=== PATIENT | male | born 1960 | race Caucasian/White ===

== ENCOUNTER 2017-04-10 18:38 | Emergency (ER) | payer OTHER ==
[2017-04-10 18:43] VITALS: BP 152/88
[2017-04-10] MEDS ORDERED: CYCLOBENZAPRINE 10 MG Prepack 2 PO PRN (19:08)
[2017-04-10] MEDS ORDERED: HYDROcod/ACET 5/325 Prepack 6 PO STA (19:08)
--- NOTE | 2017-04-10 19:11 | ED Physician Documentation ---
PD HPI BACK INJURY - Stated complaint Stated Complaint: BACK PX - History obtained from History obtained from: Patient, Family () - History of Present Illness Type of injury: Other (Without specific injury this 56-year-old gentleman developed back pain the area of the low lumbar spine radiating a little bit to the left but not to the buttock or legs about a week ago. It is best if he is sitting still, worse if he tries to get up, twists, or with motion. There is no associated weakness, numbness, or tingling of the extremities. No saddle anesthesia or fevers. No bowel or bladder incontinence. He tried Motrin and a topical patch without relief.) Review of Systems Constitutional: denies: Fever, Chills Cardiac: denies: Chest pain / pressure, Palpitations Respiratory: denies: Dyspnea, Cough PD PAST MEDICAL HISTORY - Past Medical History Past Medical History: Yes Neuro: Fainting GI: GERD : Benign prostate hypertrophy - Past Surgical History Past Surgical History: Yes General: Appendectomy - Present Medications Home Medications: Ambulatory Orders Medication Instructions Recorded Confirmed Cyclobenzaprine [Flexeril] 10 mg PO TID PRN #20 tablet 04/10/17 HYDROcod/ACETAM 5/325 [[place] 5/325] 1 - 2 ea PO Q6H PRN #15 tablet 04/10/17 - Allergies Allergies/Adverse Reactions: Allergies Allergy/AdvReac Type Severity Reaction Status Date / Time No Known Drug Allergies Allergy Verified 04/10/17 18:43 - Social History Does the pt smoke?: No Smoking Status: Former smoker Does the pt drink ETOH?: Yes Does the pt have substance abuse?: No - Immunizations Immunizations are current?: Yes - POLST Patient has POLST: No PD ED PE NORMAL - Vitals Vital signs reviewed: Yes - General General: Alert and oriented X 3, No acute distress - Abdomen Abdomen: Normal bowel sounds, Soft, Non tender - Back Back: No spinal TTP, Other (Some paralumbar muscle tenderness and winces with motion, The patient has equal and normal Achilles and patellar reflexes bilaterally. Normal sensation in all areas of the legs. Patient denies saddle anesthesia. Normal strength in flexion-extension at the ankles, knees, and flexion of the hips.) - Neuro Neuro: Alert and oriented X 3, Normal speech - Psych Psych: Normal mood, Normal affect Results - Vitals Vitals: Vital Signs - 24 hr 04/10/17 18:40 Temperature 36.6 C Heart Rate 60 Respiratory 16 Rate Blood Pressure 152/88 H O2 Saturation 98 Oxygen O2 Source Room air PD MEDICAL DECISION MAKING - ED course ED course: This patient has seemingly uncomplicated musculoskeletal back pain. The patient has no "red flags." Specifically denies IV drug use, fevers, incontinence, saddle anesthesia. Spinal epidural abscess was considered, given that the patient has no fever, is not diabetic, has no spinal tenderness, does not use IV drugs, and has no bilateral neurologic symptoms, the diagnosis of spinal epidural abscess is considered exceedingly unlikely. Departure - Departure Disposition: Home, Self Care Clinical Impression: Back spasm Condition: Good Record reviewed to determine appropriate education?: Yes Instructions: ED Low Back Pain Injury Prescriptions: Cyclobenzaprine [Flexeril] 10 mg PO TID PRN #20 tablet PRN Reason: Pain HYDROcod/ACETAM 5/325 [[place] 5/325] 1 - 2 ea PO Q6H PRN #15 tablet PRN Reason: Pain Comments: Call your doctor to arrange a follow-up appointment, make the next available appointment. In the interim, return anytime if worse or if new symptoms develop. Do not drink or drive while taking narcotic pain medication. Note that many narcotic pain relievers also contain Tylenol/acetaminophen. Please ensure that your total dose of acetaminophen from all sources does not exceed 3 g (3000 mg) per day. You may get constipated while on this medication. Take a stool softener such as Colace twice a day while you are on it. Also add an [id number] laxative such as senna or MiraLAX on any day that you do not have a bowel movement. If you received a narcotic pain medication or sedative while in the emergency department, do not drive for the next 24 hours. Your blood pressure was elevated today on check into the emergency department. This does not mean that you have hypertension, it is a common phenomenon to come to the emergency department and have elevated blood pressure. I recommend that she see her primary care physician within the week to have it rechecked when you are feeling better. Forms: Activity restrictions
[2017-04-10] MEDS ORDERED: CYCLOBENZAPRINE 10 MG Prepack 2 PO ONE (19:19)
[2017-04-10] MEDS ORDERED: HYDROcod/ACET 5/325 Prepack 6 PO ONE (19:19)
== END 2017-04-10 19:31 | disposition home or self-care (01) ==
LOC: ED 18:38
DX: M62.830 Muscle spasm of back (principal); K21.9 Gastro-esophageal reflux disease without esophagitis; Z87.891 Personal history of nicotine dependence
CPT/HCPCS: 99283

== ENCOUNTER 2018-01-10 16:41 | Emergency (ER) | payer OTHER ==
--- NOTE | 2018-01-10 17:23 | ED Physician Documentation ---
PD HPI HEENT - Stated complaint Stated Complaint: DIZZY, NAUSEA, WEAK - Chief complaint Chief Complaint: Neuro - History obtained from History obtained from: Patient - History of Present Illness Timing - onset: Today Timing - details: Abrupt onset (was working under truck lying flat and turned head to get a tool, with abrupt onset of vertigo. No other symptoms and did not strike head. Got up and felt off balance due to dizziness. Able to talk. No focal weakness. No loss of vision. No headache.), Still present (still feels dizzy with head movement, but better if lying still.) Worsens: Position (turning head worsens dizziness; improved with lying still.) Associated symptoms: Other (some sinus pressure recent). No: Fever, Congestion , Rhinorrhea, Cough Similar symptoms before: Has not had sx before Recently seen: Not recently seen Review of Systems Constitutional: denies: Fever, Chills, Myalgias Eyes: denies: Loss of vision, Decreased vision (feels vision blurred some when the vertigo is worst.) Ears: denies: Loss of hearing, Ear pain, Drainage/discharge Nose: reports: Sinus pressure / pain. denies: Congestion Throat: denies: Sore throat Cardiac: reports: Chest pain / pressure (noted some chest pain after vomiting few times. No hematemesis.) Respiratory: denies: Cough GI: reports: Nausea. denies: Vomiting, Diarrhea Skin: denies: Rash, Lesions Musculoskeletal: denies: Neck pain, Back pain Neurologic: denies: Focal weakness, Numbness, Confused, Altered mental status, Headache, Head injury PD PAST MEDICAL HISTORY - Past Medical History Cardiovascular: None Respiratory: None Neuro: Fainting Endocrine/Autoimmune: None GI: GERD : Benign prostate hypertrophy - Past Surgical History Past Surgical History: Yes General: Appendectomy - Present Medications Home Medications: Ambulatory Orders Medication Instructions Recorded Confirmed Cyclobenzaprine [Flexeril] 10 mg PO TID PRN #20 tablet 04/10/17 HYDROcod/ACETAM 5/325 [[place] 5/325] 1 - 2 ea PO Q6H PRN #15 tablet 04/10/17 Dexamethasone [Decadron] 4 mg PO DAILY #5 tablet 01/10/18 Meclizine [Antivert] 25 mg PO Q6H PRN #30 tablet 01/10/18 Ondansetron Odt [Zofran] 4 mg TL Q6H PRN #15 tablet 01/10/18 - Allergies Allergies/Adverse Reactions: Allergies Allergy/AdvReac Type Severity Reaction Status Date / Time No Known Drug Allergies Allergy Verified 04/10/17 18:43 - Social History Does the pt smoke?: No Smoking Status: Former smoker Does the pt drink ETOH?: Yes Does the pt have substance abuse?: No - Immunizations Immunizations are current?: Yes - POLST Patient has POLST: No PD ED PE NORMAL - Vitals Vital signs reviewed: Yes - General General: Alert and oriented X 3, No acute distress, Well developed/nourished - HEENT HEENT: Atraumatic, PERRL, EOMI (nystagmus to the right with head movement. Denies visual loss on field testing. ), Ears normal, Pharynx benign - Neck Neck: Supple, no meningeal sign, No adenopathy - Cardiac Cardiac: RRR, No murmur - Respiratory Respiratory: Clear bilaterally - Derm Derm: Normal color, Warm and dry - Extremities Extremities: No deformity, No tenderness to palpate, Normal ROM s pain - Neuro Neuro: Alert and oriented X 3, barrel centerer 2-12 intact, No motor deficit, No sensory deficit, Normal speech, Other Eye Opening: Spontaneous Motor: Obeys Commands Verbal: Oriented GCS Score: 15 Results - Vitals Vitals: Oxygen O2 Source Room air - EKG (time done) 17:06 Rate: Rate (enter#) (56) Rhythm: Sinus bradycardia [place]: Normal Intervals: Normal MA QRS: Normal Ischemia: Normal ST segments. No: ST elevation c/w ischemia, ST depression, T wave inversion Computer interpretation: Disagree with computer - Labs Labs: Laboratory Tests 01/10/18 01/10/18 17:21 17:21 WBC 10.5 RBC 5.15 Hgb 15.5 Hct 47.2 MCV 91.6 MCH 30.1 MCHC 32.8 RDW 13.9 Plt Count 208 MPV 9.8 Neut # 8.7 H Lymph # 1.0 L [place] # 0.7 Eos # 0.1 Baso # 0.0 Absolute Nucleated RBC 0.01 Nucleated RBC % 0.1 Manual Slide Review Indicated Platelet Estimate NORMAL (130-450,000) Platelet Morphology 1+ LARGE PLATELETS RBC Morph Micro Appear NORMAL APPEARANCE Sodium 137 Potassium 4.2 Chloride 106 Carbon Dioxide 26 Anion Gap 5.0 L BUN 15 Creatinine 1.0 Estimated GFR (MDRD) 77 L Glucose 98 Calcium 8.9 Magnesium 2.2 Total Bilirubin 1.1 H AST 27 ALT 32 Alkaline Phosphatase 88 Total Protein 7.2 Albumin 4.4 Globulin 2.8 Albumin/Globulin Ratio 1.6 Lipase 24 PD MEDICAL DECISION MAKING - ED course Complexity details: reviewed results, considered differential, d/w patient Departure - Departure Disposition: Home, Self Care Clinical Impression: Positional vertigo Condition: Stable Record reviewed to determine appropriate education?: Yes Instructions: ED Vertigo Unspecified Follow-Up: [facility] [Provider Group] [facility] [Provider Group] Prescriptions: Dexamethasone [Decadron] 4 mg PO DAILY #5 tablet Meclizine [Antivert] 25 mg PO Q6H PRN #30 tablet PRN Reason: Vertigo Ondansetron Odt [Zofran] 4 mg TL Q6H PRN #15 tablet PRN Reason: Nausea / Vomiting Comments: Regular fluids and diet. Decadron daily for 5 more days for presumed inflammation of the inner ear. Meclizine every 6-8 hours if needed for dizziness. Ondansetron if needed for nausea. Rest and avoid changing position quickly for the next few days and progress activity as able after that. Your basic blood tests appear normal here with regard to electrolytes and blood sugar. Discharge Date/Time: 01/10/18 18:40
[2018-01-10] MEDS ORDERED: MECLIZINE 12.5 MG TABLET PO STA (17:44)
[2018-01-10] MEDS ORDERED: DEXAMETHASONE 10 MG/ML VIAL IVP STA (17:45)
[2018-01-10 18:04] LABS: ALBUMIN 4.4 g/dL (3.2-5.5); ALBUMIN/GLOBULIN RATIO 1.6 (1.0-2.2); BILIRUBIN,TOTAL 1.1 mg/dL (0.2-1.0); CALCIUM 8.9 mg/dL (8.5-10.3); MAGNESIUM 2.2 mg/dL (1.7-2.8); TOTAL PROTEIN 7.2 g/dL (6.7-8.2)
[2018-01-10 18:18] LABS: BASOPHILS % (AUTO) 0.3 %; EOSINOPHILS # (AUTO) 0.1 10^3/uL (0.0-0.7); HGB - HEMOGLOBIN 15.5 g/dL (14.0-18.0); LYMPHOCYTES % (AUTO) 9.5 %; MEAN CORPUSCULAR HEMOGLOBIN 30.1 pg (27.0-31.0); MEAN CORPUSCULAR HGB CONC 32.8 g/dL (32.0-36.0); MEAN CORPUSCULAR VOLUME 91.6 fL (80.0-94.0); MEAN PLATELET VOLUME 9.8 fL (7.4-11.4); MONOCYTES # (AUTO) 0.7 10^3/uL (0.0-1.0); MONOCYTES % (AUTO) 6.3 %; NEUTROPHILS # (AUTO) 8.7 10^3/uL (1.5-6.6); NEUTROPHILS % (AUTO) 82.9 %; PLT - PLATELET COUNT 208 10^3/uL (130-450); RED BLOOD COUNT 5.15 10^6/uL (4.70-6.10); RED CELL DISTRIBUTION WIDTH 13.9 % (12.0-15.0); WHITE BLOOD COUNT 10.5 x10^3/uL (4.8-10.8)
[2018-01-10 18:26] VITALS: BP 147/76
[2018-01-10 18:57] LABS: PLATELET ESTIMATE, MANUAL NORMAL (130-450,000) (NORMAL); PLATELET MORPHOLOGY 1+ LARGE PLATELETS (NORMAL); RBC MORPHOLOGY (MULTIPLE) NORMAL APPEARANCE (NORMAL)
== END 2018-01-10 18:40 | disposition home or self-care (01) ==
LOC: ED 16:41
DX: R42 Dizziness and giddiness (principal); R00.1 Bradycardia, unspecified; Z87.891 Personal history of nicotine dependence
CPT/HCPCS: 36415; 80053; 83690; 83735; 85025; 93005; 96374; 99283; A9270

== ENCOUNTER 2020-11-29 16:26 | Emergency (ER) | payer OTHER ==
[2020-11-29] MEDS ORDERED: DOXYCYCLINE 100 MG TABLET PO STA (18:29)
--- NOTE | 2020-11-29 18:31 | ED Physician Documentation ---
History of Present Illness - Stated complaint Stated Complaint: TICK BITE - Chief complaint Chief Complaint: Wound - History obtained from History obtained from: Patient - History of Present Illness Timing: Today Pain level max: 0 Pain level now: 0 - Additonal information Additional information: 60-year-old male presents to the emergency department with what he states was a tick bite a few days ago to the left side of the neck. He states that his attempted to remove the tick but did not get it all. Now it is red and swollen. No fevers. No chills. Nothing makes it better or worse. Review of Systems Constitutional: denies: Fever, Chills Respiratory: denies: Cough GI: denies: Vomiting PD PAST MEDICAL HISTORY - Past Medical History Past Medical History: Yes Cardiovascular: None Respiratory: None Endocrine/Autoimmune: None GI: GERD : Benign prostate hypertrophy - Past Surgical History Past Surgical History: Yes General: Appendectomy - Present Medications Home Medications: Ambulatory Orders Medication Instructions Recorded Confirmed Cyclobenzaprine [Flexeril] 10 mg PO TID PRN #20 tablet 04/10/17 HYDROcod/ACETAM 5/325 [[place] 5/325] 1 - 2 ea PO Q6H PRN #15 tablet 04/10/17 Meclizine [Antivert] 25 mg PO Q6H PRN #30 tablet 01/10/18 Ondansetron Odt [Zofran] 4 mg TL Q6H PRN #15 tablet 01/10/18 dexAMETHasone [Decadron] 4 mg PO DAILY #5 tablet 01/10/18 Doxycycline Hyclate 100 mg PO BID #20 11/29/20 - Allergies Allergies/Adverse Reactions: Allergies Allergy/AdvReac Type Severity Reaction Status Date / Time No Known Drug Allergies Allergy Verified 11/29/20 17:04 - Social History Does the pt smoke?: No Smoking Status: Never smoker Does the pt drink ETOH?: Yes Does the pt have substance abuse?: No - Immunizations Immunizations are current?: Yes - POLST Patient has POLST: No PD ED PE NORMAL - Vitals Vital signs reviewed: Yes - General General: Alert and oriented X 3, No acute distress - HEENT HEENT: Moist mucous membranes - Neck Neck: Supple, no meningeal sign - Cardiac Cardiac: RRR - Respiratory Respiratory: No respiratory distress, Clear bilaterally - Derm Derm: Warm and dry, Other (1 cm area of erythema to the left neck. No abscess. No visible foreign body.) - Neuro Neuro: Alert and oriented X 3 - Psych Psych: Normal mood, Normal affect Results - Vitals Vitals: Vital Signs - 24 hr 11/29/20 11/29/20 17:04 18:39 Temperature 36.5 C 36.5 C Heart Rate 65 66 Respiratory 16 16 Rate Blood Pressure 190/93 H 150/90 H O2 Saturation 98 100 Oxygen O2 Source Room air PD MEDICAL DECISION MAKING - ED course Complexity details: considered differential, d/w patient ED course: Patient with what appears to be mild cellulitis after a tick bite. Will place on doxycycline. We will have him follow-up with his doctor for further care. Patient counseled regarding signs and symptoms for which I believe and urgent re-evaluation would be necessary. Patient with good understanding of and agreement to plan and is comfortable going home at this time This document was made in part using voice recognition software. While efforts are made to proofread this document, sound alike and grammatical errors may occur. Departure - Departure Disposition: 01 Home, Self Care Clinical Impression: Cellulitis Qualifiers: Site of cellulitis: unspecified site Qualified Code(s): L03.90 - Cellulitis, unspecified Tick bite Qualifiers: Encounter type: initial encounter Qualified Code(s): W57.XXXA - Bitten or stung by nonvenomous insect and other nonvenomous arthropods, initial encounter Condition: Good Instructions: ED Infec Skin Cellulitis, ED Bite Tick Abx Tx Follow-Up: IZAIAH ADAIR DO [Primary Care Provider] - Within 1 week Prescriptions: Doxycycline Hyclate 100 mg PO BID #20 Comments: Take all antibiotics until gone. Return if you worsen. Follow-up with your doctor as needed for further care. Discharge Date/Time: 11/29/20 18:39
[2020-11-29 18:41] VITALS: BP 150/90
== END 2020-11-29 18:39 | disposition home or self-care (01) ==
LOC: ED 16:26
DX: S10.86XA Insect bite of other specified part of neck, initial encounter (principal); L03.221 Cellulitis of neck; W57.XXXA Bitten or stung by nonvenomous insect and other nonvenomous arthropods, initial encounter
CPT/HCPCS: 99282; 99284; A9270

== ENCOUNTER 2021-08-25 13:03 | Emergency (ER) | payer OTHER ==
--- NOTE | 2021-08-25 13:45 | XRAY Report ---
PROCEDURE: Chest 1 View X-Ray INDICATIONS: cough and congestion TECHNIQUE: One view of the chest was acquired. COMPARISON: None FINDINGS: Surgical changes and devices: None. Lungs and pleura: No pleural effusions or pneumothorax. Minimal left basilar atelectasis and or infi ltrate noted. Mediastinum: Mediastinal contours appear normal. Heart size is normal. Bones and chest wall: No suspicious bony lesions. Overlying soft tissues appear unremarkable. IMPRESSION: Minimal left lower lobe atelectasis and or infiltrate Reviewed by: Jadon Dooley MD on 08/25/2021 12:44 PM [place] Approved by: Jadon Dooley MD on 08/25/2021 12:44 PM [place] Station ID: [id number]
[2021-08-25 15:04] VITALS: BP 114/80
[2021-08-25 15:21] LABS: BASOPHILS % (AUTO) 0.3 %; EOSINOPHILS % (AUTO) 3.8 %; HGB - HEMOGLOBIN 16.9 g/dL (14.0-18.0); MEAN CORPUSCULAR HEMOGLOBIN 31.2 pg (27.0-31.0); MEAN CORPUSCULAR HGB CONC 32.5 g/dL (32.0-36.0); MEAN CORPUSCULAR VOLUME 95.9 fL (80.0-94.0); MEAN PLATELET VOLUME 10.9 fL (7.4-11.4); NEUTROPHILS % (AUTO) 65.4 %; PLT - PLATELET COUNT 203 10^3/uL (130-450); RED BLOOD COUNT 5.42 10^6/uL (4.70-6.10); RED CELL DISTRIBUTION WIDTH 14.5 % (12.0-15.0); WHITE BLOOD COUNT 7.3 x10^3/uL (4.8-10.8)
[2021-08-25 15:28] LABS: ALBUMIN 4.1 g/dL (3.2-5.5); ALBUMIN/GLOBULIN RATIO 1.2 (1.0-2.2); BILIRUBIN,TOTAL 0.5 mg/dL (0.2-1.0); CALCIUM 9.3 mg/dL (8.5-10.3); POTASSIUM 4.4 mmol/L (3.5-5.0); TOTAL PROTEIN 7.6 g/dL (6.7-8.2)
[2021-08-25 15:36] LABS: ABNORMAL LYMPHS % (MANUAL) 0 %
[2021-08-25] MEDS ORDERED: IPRATROPIUM/ALBUTEROL 3 ML NEB INH STA (15:42)
--- NOTE | 2021-08-25 15:42 | ED Physician Documentation ---
History of Present Illness - Stated complaint Stated Complaint: SHORTNESS OF BREATHE, COUGH - Chief complaint Chief Complaint: Resp - Additonal information Additional information: 61-year-old male who denies any pertinent past medical history presents to the emergency department for evaluation of progressive shortness of air. He developed what he thinks was a head cold about 1 week ago has gotten progressively worse. He often has a productive cough with yellow sputum. Some sore throat no fevers. This gentleman is fully vaccinated for COVID-19 though note not yet boosted. He denies any history of hypertension diabetes or coronary artery disease. Review of Systems Constitutional: denies: Fever, Chills Eyes: reports: Reviewed and negative Nose: reports: Congestion Throat: reports: Reviewed and negative Cardiac: reports: Palpitations. denies: Chest pain / pressure, Pedal edema, Calf pain Respiratory: reports: Dyspnea, Cough, Wheezing. denies: Hemoptysis GI: denies: Abdominal Pain, Nausea, Vomiting, Constipation, Diarrhea : reports: Dysuria, Frequency, Hesitancy Musculoskeletal: reports: Reviewed and negative PD PAST MEDICAL HISTORY - Past Medical History Past Medical History: Yes Cardiovascular: None Respiratory: None Endocrine/Autoimmune: None GI: GERD : Benign prostate hypertrophy - Past Surgical History Past Surgical History: Yes General: Appendectomy - Present Medications Home Medications: Ambulatory Orders Medication Instructions Recorded Confirmed Cyclobenzaprine [Flexeril] 10 mg PO TID PRN #20 tablet 04/10/17 HYDROcod/ACETAM 5/325 [[place] 5/325] 1 - 2 ea PO Q6H PRN #15 tablet 04/10/17 Meclizine [Antivert] 25 mg PO Q6H PRN #30 tablet 01/10/18 Ondansetron Odt [Zofran] 4 mg TL Q6H PRN #15 tablet 01/10/18 dexAMETHasone [Decadron] 4 mg PO DAILY #5 tablet 01/10/18 Doxycycline Hyclate 100 mg PO BID #20 11/29/20 Albuterol Sulf [Ventolin Hfa 1 - 2 puffs INH Q4HR PRN #1 inhaler 08/25/21 Inhaler] Amox/Clav 875/125 [Augmentin] 1 each PO Q12H #14 tablet 08/25/21 Azithromycin [Zithromax] 0 mg PO DAILY #6 tablet 08/25/21 Benzonatate [Tessalon] 100 mg PO TID PRN #20 cap 08/25/21 - Allergies Allergies/Adverse Reactions: Allergies Allergy/AdvReac Type Severity Reaction Status Date / Time No Known Drug Allergies Allergy Verified 08/25/21 13:16 - Social History Does the pt smoke?: No Smoking Status: Former smoker Does the pt drink ETOH?: Yes Does the pt have substance abuse?: No - Immunizations Immunizations are current?: Yes - POLST Patient has POLST: No PD ED PE EXPANDED - General General: Alert, No acute distress - Cardiac Cardiac: Irregularly irregular, Murmur Present, Radial strong equal, Pedal strong equal, Cap refill < 2 sec - Respiratory Respiratory: Labored, Wheezing, Rhonchi (Generalized rhonchi and expiratory wheeze with cough). No: Distress - Abdomen Abdomen: Normal Bowel sounds. No: Tender to palpation - Derm Derm: Normal color, Warm and dry. No: Rash - Extremities Extremities: Normal. No: Deformity, Tenderness Results - Vitals Vitals: Vital Signs - 24 hr 08/25/21 08/25/21 08/25/21 13:10 15:00 16:05 Temperature 37.0 C Heart Rate 93 89 88 Respiratory 24 20 18 Rate Blood Pressure 139/72 H 114/80 O2 Saturation 95 92 Oxygen O2 Source Room air - EKG (time done) 1456 Rate: Rate (enter#) (82) Rhythm: Atrial fibrillation Intervals: No: Prolonged QT QRS: Normal Ischemia: Normal ST segments Compare to prior EKG: Changed from prior EKG Computer interpretation: Agree with computer - Labs Labs: Laboratory Tests 08/25/21 08/25/21 08/25/21 15:00 15:00 15:00 WBC 7.3 RBC 5.42 Hgb 16.9 Hct 52.0 MCV 95.9 H MCH 31.2 H MCHC 32.5 RDW 14.5 Plt Count 203 MPV 10.9 Neut # (Auto) Not Reportable Lymph # (Auto) Not Reportable Harnett # (Auto) Not Reportable Eos # (Auto) Not Reportable Baso # (Auto) Not Reportable Absolute Nucleated RBC Not Reportable Total Counted 100 Band Neuts % (Manual) 1 Abnorm Lymph % (Manual) 0 Nucleated RBC % Not Reportable Neutrophils # (Manual) 4.7 Lymphocytes # (Manual) 1.3 L Monocytes # (Manual) 0.9 Eosinophils # (Manual) 0.4 Basophils # (Manual) 0.0 Differential Comment MANUAL DIFFERENTIAL WBC Morphology NORMAL APPEARANCE Platelet Estimate NORMAL (130-450,000) Platelet Morphology NORMAL APPEARANCE RBC Morph Micro Appear NORMAL APPEARANCE Sodium Potassium Chloride Carbon Dioxide Anion Gap BUN Creatinine Estimated GFR (MDRD) Glucose Calcium Total Bilirubin AST ALT Alkaline Phosphatase Troponin I High Sens 7.5 B-Natriuretic Peptide 45 Total Protein Albumin Globulin Albumin/Globulin Ratio Lipase 08/25/21 15:00 WBC RBC Hgb Hct MCV MCH MCHC RDW Plt Count MPV Neut # (Auto) Lymph # (Auto) Harnett # (Auto) Eos # (Auto) Baso # (Auto) Absolute Nucleated RBC Total Counted Band Neuts % (Manual) Abnorm Lymph % (Manual) Nucleated RBC % Neutrophils # (Manual) Lymphocytes # (Manual) Monocytes # (Manual) Eosinophils # (Manual) Basophils # (Manual) Differential Comment WBC Morphology Platelet Estimate Platelet Morphology RBC Morph Micro Appear Sodium 138 Potassium 4.4 Chloride 102 Carbon Dioxide 29 Anion Gap 7.0 BUN 13 Creatinine 1.0 Estimated GFR (MDRD) 76 L Glucose 90 Calcium 9.3 Total Bilirubin 0.5 AST 40 ALT 46 Alkaline Phosphatase 80 Troponin I High Sens B-Natriuretic Peptide Total Protein 7.6 Albumin 4.1 Globulin 3.5 Albumin/Globulin Ratio 1.2 Lipase 33 - Rads (name of study) CXR Radiology: Final report received (Minimal left lower lobe atelectasis and/or infiltrate) PD MEDICAL DECISION MAKING - ED course Complexity details: reviewed old records, reviewed results, re-evaluated patient, considered differential, d/w patient ED course: 61-year-old male presents the emergency department for evaluation of cough and congestion that began about 1 week ago. He often has a productive cough and feels a rattle and wheeze in his chest. He is a non-smoker and carries no coronary or pulmonary history. On initial presentation he appeared very well his room air saturations were 92 to 98%. He initially sounded fairly wheezy and rhonchorous though this improved markedly with a DuoNeb in the clinic. A Covid PCR is pending. I am chest x-ray suggests a subtle left lower lobe infiltrate for which we will start him on Augmentin and azithromycin. He will also be levied a prescription for Tessalon Perles as well as albuterol. His screening EKG however did show an atrial fibrillation. It was rate controlled in the 70s. He denies any palpitations or chest pain. No history of similar in the past. While here in the emergency department he converted to a sinus rhythm and is discharged while in sinus rhythm. He has no fainting spells. Screening labs showed no elevated BNP or an elevation of the troponin. His kidney function is normal and he has no lower extremity edema. His CHADS2 score is 0 making him very low risk for stroke therefore anticoagulation was not initiated and is not warranted given that he now is in sinus rhythm. I discussed with him the finding of atrial fibrillation and have recommended that he see his primary care doctor soon as possible. He should be referred for a Holter monitor as well as referral to a pie icer machine for evaluation of an echocardiogram and stress test. Emergent return precautions were otherwise discussed. Departure - Departure Disposition: 01 Home, Self Care Clinical Impression: Community acquired pneumonia Qualifiers: Laterality: left Lung location: lower lobe of lung Qualified Code(s): J18.9 - Pneumonia, unspecified organism Atrial fibrillation Qualifiers: Atrial fibrillation type: paroxysmal Qualified Code(s): I48.0 - Paroxysmal atrial fibrillation Condition: Stable Record reviewed to determine appropriate education?: Yes Instructions: Atrial Fibrillation Dc, ED Pneumonia Ch Follow-Up: IZAIAH ADAIR DO [Primary Care Provider] - Prescriptions: Albuterol Sulf [Ventolin Hfa Inhaler] 1 - 2 puffs INH Q4HR PRN #1 inhaler PRN Reason: Shortness Of Air/Wheezing Amox/Clav 875/125 [Augmentin] 1 each PO Q12H #14 tablet Benzonatate [Tessalon] 100 mg PO TID PRN #20 cap PRN Reason: Cough Azithromycin [Zithromax] 0 mg PO DAILY #6 tablet Comments: Sebas you are seen in the emergency department today for 1 week of cough. The chest x-ray shows a early pneumonia in your left lower lung. Please fill the prescription at the [facility] in [place] for the Augmentin and azithromycin both of these are antibiotics. Tessalon Perles are a cough suppressant which should help make you more comfortable. I have also prescribed you some albuterol. This will help you you take big deep breaths and reduce the inflammation in your chest. Always use this with your inhaler and you may use it 4-6 times a day. Your screening labs today did not show any worrisome findings. For a brief period of time in the emergency department you did have an abnormal heart rhythm called atrial fibrillation. At the time of your discharge from the emergency department your heart rhythm was sinus. It is likely that your heart is a little irritated with your pneumonia and that is why you are developing the atrial fibrillation. You are low risk for stroke with this therefore we have not started you on anticoagulant medication. Please discuss this with your primary care doctor. You should be referred for a Holter monitor as well as referral to a pie icer machine for stress test and echocardiogram. If at any point you develop sudden severe chest pain, have shortness of air, feel faint, lightheaded or dizzy that you are to return immediately to the ER for a second evaluation
[2021-08-25 16:15] LABS: BAND NEUTROPHILS % (MANUAL) 1 %; DIFFERENTIAL COMMENT MANUAL DIFFERENTIAL; EOSINOPHILS # (MANUAL) 0.4 10^3/uL (0-0.7); LYMPHOCYTES # (MANUAL) 1.3 10^3/uL (1.5-3.5); LYMPHOCYTES % (MANUAL) 18 %; MONOCYTES # (MANUAL) 0.9 10^3/uL (0.0-1.0); NEUTROPHILS # (MANUAL) 4.7 10^3/uL (1.5-6.6); PLATELET ESTIMATE, MANUAL NORMAL (130-450,000) (NORMAL); PLATELET MORPHOLOGY NORMAL APPEARANCE (NORMAL); RBC MORPHOLOGY (MULTIPLE) NORMAL APPEARANCE (NORMAL); WBC MORPHOLOGY (MULTIPLE) NORMAL APPEARANCE (NORMAL)
== END 2021-08-25 16:45 | disposition home or self-care (01) ==
LOC: ED 13:03
DX: J18.9 Pneumonia, unspecified organism (principal); I48.0 Paroxysmal atrial fibrillation; Z87.891 Personal history of nicotine dependence; Z20.822 Contact with and (suspected) exposure to COVID-19
CPT/HCPCS: 36415; 80053; 83690; 83880; 84484; 85025; 93005; 94640; 99284

== ENCOUNTER 2023-01-08 13:51 | Emergency (ER) | payer OTHER ==
[2023-01-08] MEDS ORDERED: IPRATROPIUM/ALBUTEROL 3 ML NEB INH STA (14:22)
--- NOTE | 2023-01-08 15:26 | XRAY Report ---
PROCEDURE: Chest 2 View X-Ray INDICATIONS: cough TECHNIQUE: 2 views of the chest were acquired. COMPARISON: 08/25/2021. FINDINGS: Surgical changes and devices: None. Lungs and pleura: No pleural effusions or pneumothorax. Lungs are clear. Mediastinum: Mediastinal contours appear normal. Heart size is normal. Bones and chest wall: No suspicious bony lesions. Overlying soft tissues appear unremarkable. IMPRESSION: No acute cardiopulmonary process. Reviewed by: Darío Chaudhary MD on 01/08/2023 3:25 PM PDT Approved by: Darío Chaudhary MD on 01/08/2023 3:25 PM PDT Station ID: [id number]
[2023-01-08 15:33] LABS: B. PARAPERTUSSIS- RESP PCR PAN NOT DETECTED; B. PERTUSSIS- RESP PCR PANEL NOT DETECTED; C. PNEUMONIAE- RESP PCR PANEL NOT DETECTED; CORONAVIRUS 229E-RESP PCR NOT DETECTED; CORONAVIRUS HKU1-RESP PCR NOT DETECTED; CORONAVIRUS NL63-RESP PCR NOT DETECTED; CORONAVIRUS OC43-RESP PCR NOT DETECTED; HUMAN METAPNEUMOVIRUS NOT DETECTED; INFLUENZA A- RESP PCR PANEL NOT DETECTED; INFLUENZA B - RESP PCR PANEL NOT DETECTED; M. PNEUMONIAE- RESP PCR PANEL NOT DETECTED; PARAINFLUENZA VIRUS 1 NOT DETECTED; PARAINFLUENZA VIRUS 2 NOT DETECTED; PARAINFLUENZA VIRUS 3 DETECTED; PARAINFLUENZA VIRUS 4 NOT DETECTED; RHINOVIRUS/ENTEROVIRUS NOT DETECTED; RSV- RESP PCR PANEL NOT DETECTED; SARS-CoV-2 -RESP PCR PANEL NOT DETECTED
[2023-01-08] MEDS ORDERED: predniSONE 20 MG TABLET PO STA (15:34)
--- NOTE | 2023-01-08 15:37 | ED Physician Documentation ---
PD HPI URI - Stated complaint Stated Complaint: COUGH,SOA - Chief complaint Chief Complaint: Resp - History obtained from History obtained from: Patient - Additional information Additional information: Patient is a 62-year-old male presenting for evaluation of a productive cough for the past 4 days. Patient reports having a history of walking pneumonia and is concerned that it is settling in his lungs. He denies fever. He does have a history of COPD as he was a prior smoker. He does have an inhaler at home which she does not feel is helping. He reports at times it feels difficult to take a full breath.He denies any known sick contacts.Denies hemoptysis.No chest pain, abdominal symptoms, leg swelling or pain.No recent travel or immobilization. Review of Systems Constitutional: denies: Fever Cardiac: denies: Chest pain / pressure Respiratory: reports: Cough GI: denies: Abdominal Pain Musculoskeletal: denies: Extremity swelling PD PAST MEDICAL HISTORY - Past Medical History Cardiovascular: None Respiratory: None Endocrine/Autoimmune: None GI: GERD : Benign prostate hypertrophy - Past Surgical History Past Surgical History: Yes General: Appendectomy - Present Medications Home Medications: Ambulatory Orders Medication Instructions Recorded Confirmed Albuterol Sulf [Ventolin Hfa 1 - 2 puffs INH Q4HR PRN #1 each 01/08/23 Inhaler] Benzonatate [Tessalon] 200 mg PO QID PRN #20 cap 01/08/23 Multivit-Min/Iron/Folic Acid/K 1 each PO DAILY 01/08/23 01/08/23 [Multi-Day Plus Minerals Tablet] predniSONE [Deltasone] 60 mg PO DAILY 4 Days #12 tablet 01/08/23 - Allergies Allergies/Adverse Reactions: Allergies Allergy/AdvReac Type Severity Reaction Status Date / Time No Known Drug Allergies Allergy Verified 01/08/23 13:57 - Social History Does the pt smoke?: No Smoking Status: Former smoker Does the pt drink ETOH?: Yes Does the pt have substance abuse?: No - Immunizations Immunizations are current?: Yes - POLST Patient has POLST: No PD ED PE NORMAL - General General: Alert and oriented X 3, No acute distress, Well developed/nourished - HEENT HEENT: Atraumatic, Moist mucous membranes, Pharynx benign - Neck Neck: Supple, no meningeal sign - Cardiac Cardiac: RRR, No murmur - Respiratory Respiratory: No respiratory distress, Other (Mild expiratory wheezing bilaterally, no rhonchi or rales) - Derm Derm: Warm and dry - Extremities Extremities: No edema, No calf tenderness / cord - Neuro Neuro: Normal speech Results - Vitals Vitals: Vital Signs - 24 hr 01/08/23 01/08/23 01/08/23 13:57 14:33 15:58 Temperature 36.8 C Heart Rate 80 80 106 H Respiratory 20 20 18 Rate Blood Pressure 145/81 H 157/69 H O2 Saturation 98 95 Oxygen O2 Source Room air - Labs Labs: Laboratory Tests 01/08/23 14:26 Nasal Adenovirus (PCR) NOT DETECTED Nasal B. parapertussis DNA (PCR) NOT DETECTED Nasal Coronavir 229E PCR NOT DETECTED Nasal Coronavir HKU1 PCR NOT DETECTED Nasal Coronavir NL63 PCR NOT DETECTED Nasal Coronavir OC43 PCR NOT DETECTED Nasal Enterovir/Rhinovir PCR NOT DETECTED Nasal Influenza B PCR NOT DETECTED Nasal Influenza A PCR NOT DETECTED Nasal Parainfluen 1 PCR NOT DETECTED Nasal Parainfluen 2 PCR NOT DETECTED Nasal Parainfluen 3 PCR DETECTED A Nasal Parainfluen 4 PCR NOT DETECTED Nasal RSV (PCR) NOT DETECTED Nasal B.pertussis DNA PCR NOT DETECTED Nasal C.pneumoniae (PCR) NOT DETECTED Ziggy Human Metapneumo PCR NOT DETECTED Nasal M.pneumoniae (PCR) NOT DETECTED Nasal SARS-CoV-2 (PCR) NOT DETECTED PD Medical Decision Making - ED course ED course: Patient presenting for evaluation of cough and shortness of air. His vital signs are stable. He does have mild wheezing on exam and was given a DuoNeb with improvement. His chest x-ray was reviewed I do not see signs of an infiltrate or effusion. I suspect that his symptoms are likely viral in nature. Respiratory panel Is pending at time of discharge but is positive for parainfluenza 3. He was started on prednisone and is advised on continued supportive care.Patient is advised on concerning symptoms to return for. Departure - Departure Disposition: 01 Home, Self Care Clinical Impression: Bronchitis Condition: Stable Instructions: ED Bronchitis Asthmatic, ED Upper Resp Infec No Abx Tx Prescriptions: Albuterol Sulf [Ventolin Hfa Inhaler] 1 - 2 puffs INH Q4HR PRN #1 each PRN Reason: Shortness Of Air/Wheezing predniSONE [Deltasone] 60 mg PO DAILY 4 Days #12 tablet Benzonatate [Tessalon] 200 mg PO QID PRN #20 cap PRN Reason: Cough Comments: I am starting you on a course of steroids and refilling her inhaler for bronchitis. At this time I do not see an indication for antibiotics as your chest x-ray does not show signs of pneumonia. I have sent prescriptions to [facility] in [place]. Your respiratory panel is pending. This will check for COVID, influenza, RSV and a number of other common cold viruses. We will notify you if it is positive for COVID. Otherwise you can check the patient portal for your results. You should quarantine from others until you know your COVID result. Please continue with acetaminophen or ibuprofen as needed for fevers and body aches, plenty of fluids/hydration and rest. Return to the ER with any worsening symptoms such as difficulty breathing or vomiting. Discharge Date/Time: 01/08/23 15:59
[2023-01-08 15:59] VITALS: BP 157/69
== END 2023-01-08 15:59 | disposition home or self-care (01) ==
LOC: ED 13:51
DX: J40 Bronchitis, not specified as acute or chronic (principal); B34.8 Other viral infections of unspecified site; J44.9 Chronic obstructive pulmonary disease, unspecified; Z87.891 Personal history of nicotine dependence; Z20.822 Contact with and (suspected) exposure to COVID-19
CPT/HCPCS: 71046; 87633; 94640; 99283; 99284; J7512

== ENCOUNTER 2023-01-10 02:36 | Emergency (ER) | payer OTHER ==
[2023-01-10] MEDS ORDERED: IPRATROPIUM/ALBUTEROL 3 ML NEB INH STA (02:56)
--- NOTE | 2023-01-10 03:41 | ED Physician Documentation ---
PD HPI URI - Stated complaint Stated Complaint: worsening cough - Chief complaint Chief Complaint: Resp - History obtained from History obtained from: Patient - Additional information Additional information: Patient is a 62-year-old male presenting for evaluation of worsening cough. He was seen here 2 days ago and diagnosed with a parainfluenza infection and started on prednisone and an albuterol inhaler. He reports having a history of COPD due to being a former smoker. His cough continues to be productive of yellow sputum. He denies chest pain, fevers, blood in sputum.This evening he had a coughing fit lasting approximately 30 minutes. at the bedside states that he looked like he was going to vomit which concerned her so they have presented to the emergency department. He did take his inhaler. He does use a spacer. He has been compliant with his prednisone. Review of Systems Constitutional: denies: Fever Cardiac: denies: Chest pain / pressure Respiratory: reports: Dyspnea, Cough GI: denies: Vomiting PD PAST MEDICAL HISTORY - Past Medical History Past Medical History: Yes Cardiovascular: None Respiratory: None Endocrine/Autoimmune: None GI: GERD : Benign prostate hypertrophy - Past Surgical History Past Surgical History: Yes General: Appendectomy - Present Medications Home Medications: Ambulatory Orders Medication Instructions Recorded Confirmed Albuterol Sulf [Ventolin Hfa 1 - 2 puffs INH Q4HR PRN #1 each 01/08/23 Inhaler] Benzonatate [Tessalon] 200 mg PO QID PRN #20 cap 01/08/23 Multivit-Min/Iron/Folic Acid/K 1 each PO DAILY 01/08/23 01/08/23 [Multi-Day Plus Minerals Tablet] predniSONE [Deltasone] 60 mg PO DAILY 4 Days #12 tablet 01/08/23 Azithromycin [Zithromax] 1 tab PO DAILY #6 tablet 01/10/23 - Allergies Allergies/Adverse Reactions: Allergies Allergy/AdvReac Type Severity Reaction Status Date / Time No Known Drug Allergies Allergy Verified 01/10/23 02:50 - Social History Does the pt smoke?: No Smoking Status: Never smoker Does the pt drink ETOH?: Yes Does the pt have substance abuse?: No - Immunizations Immunizations are current?: Yes - POLST Patient has POLST: No PD ED PE NORMAL - General General: Alert and oriented X 3, No acute distress, Well developed/nourished - HEENT HEENT: Atraumatic - Neck Neck: Supple, no meningeal sign - Cardiac Cardiac: RRR, No murmur - Respiratory Respiratory: No respiratory distress, Other (And expiratory wheeze, diminished breath sounds at the bases, scattered rhonchi) - Abdomen Abdomen: Soft, Non tender - Extremities Extremities: No edema, No calf tenderness / cord - Neuro Neuro: Normal speech Results - Vitals Vitals: Vital Signs - 24 hr 01/10/23 01/10/23 01/10/23 02:45 02:50 03:10 Temperature 36.5 C Heart Rate 86 93 73 Respiratory 16 16 16 Rate Blood Pressure 137/68 H 129/84 H O2 Saturation 96 96 01/10/23 03:55 Temperature 36.4 C L Heart Rate 84 Respiratory 16 Rate Blood Pressure 134/77 H O2 Saturation 95 Oxygen O2 Source Room air PD Medical Decision Making - ED course Complexity details: reviewed results, re-evaluated patient, d/w patient ED course: Patient is a 62-year-old male with a history of COPD presenting for evaluation of worsening cough and shortness of air. He was seen 2 days ago and diagnosed with parainfluenza and started on prednisone. He has been using his albuterol inhaler. His vital signs here are stable. He does have diminished breath sounds at the bases and wheezing with some rhonchi. He is feeling better after DuoNeb treatment. I reviewed his chest x-ray and see no focal consolidation. His cough does seem to be worsening and he is producing more sputum.Given that he has COPD we have discussed options for treatment Of this exacerbation with an antibiotic which he is agreeable to. He is advised on continued supportive care as well as concerning symptoms to return for. Departure - Departure Disposition: 01 Home, Self Care Clinical Impression: COPD with exacerbation, Parainfluenza infection Condition: Stable Instructions: ED COPD Flare Prescriptions: Azithromycin [Zithromax] 1 tab PO DAILY #6 tablet Comments: Your respiratory swab was positive for parainfluenza on your previous visit.Because of your underlying COPD you are at risk for developing bacterial infections And your cough is worsening so we will start you on an antibiotic. I sent this prescription to [facility] in [place]. Please continue with fluids, prednisone, Albuterol inhaler and the cough medication. If you develop any worsening symptoms please consider return to the ER. Otherwise I would recommend close follow-up with your primary care provider.
[2023-01-10 04:02] VITALS: BP 134/77
--- NOTE | 2023-01-10 08:48 | XRAY Report ---
PROCEDURE: Chest 1 View X-Ray INDICATIONS: cough/SOA TECHNIQUE: One view of the chest was acquired. COMPARISON: Chest x-ray 01/08/2023. FINDINGS: Surgical changes and devices: None. Lungs and pleura: No pleural effusions or pneumothorax. Lungs are clear. Mediastinum: Mediastinal contours appear normal. Heart size is normal. Bones and chest wall: No suspicious bony lesions. Overlying soft tissues appear unremarkable. IMPRESSION: No acute cardiopulmonary process. The above findings are concordant with preliminary report. Reviewed by: Lakeisha Hernandez MD on 01/10/2023 8:46 AM PDT Approved by: Lakeisha Hernandez MD on 01/10/2023 8:46 AM PDT Station ID: [id number]
== END 2023-01-10 04:00 | disposition home or self-care (01) ==
LOC: ED 02:36
DX: J44.1 Chronic obstructive pulmonary disease with (acute) exacerbation (principal); B34.8 Other viral infections of unspecified site; Z87.891 Personal history of nicotine dependence
CPT/HCPCS: 94640; 94664; 99283; 99284